=== PATIENT | female | born 1965 | race Caucasian/White ===

== ENCOUNTER 2016-09-03 10:46 | Emergency (ER) | payer MEDICAID, OTHER ==
[~2016-09-03] VITALS: Ht 167.6 cm; Wt 56.2 kg
[2016-09-03 11:08] VITALS: BP 112/79
== END 2016-09-03 11:23 | disposition home or self-care (01) ==
LOC: ER 10:48
DX: J06.9 Acute upper respiratory infection, unspecified (principal); F41.9 Anxiety disorder, unspecified
CPT/HCPCS: A4606; Z7610

== ENCOUNTER 2017-06-30 10:03 | Emergency (ER) | payer BC, MEDICAID ==
[~2017-06-30] VITALS: Ht 167.6 cm; Wt 58.1 kg
--- NOTE | 2017-06-30 10:21 | NUR ---
FEVER/CHILLS X 6 DAYS.STD" I JUST HAD MY FLU SHOT A WEEK PRIOR". INTRMITTENT PRODUCTIVE COUGH, MID UPPER BACK PAIN ,W/DYPSNEA, NAD NOTED, VSS, RESP EVEN AND UNLABORED, WAITING FOR MD BARROW.
--- NOTE | 2017-06-30 10:31 | NUR ---
PT ESCORTED TO ROOM 7. CHNGED INTO GOWN/MONITOR.
--- NOTE | 2017-06-30 10:35 | NUR ---
PATIENT GIVEN MASK
[2017-06-30] MEDS ORDERED: IBUPROFEN 600 MG TABLET PO ONE ×2 (10:50→11:00)
[2017-06-30 11:00] LABS: BASOPHILS # (AUTO) 0.2 /CMM (0.0-0.2); BASOPHILS % (AUTO) 2.8 % (0.0-2.0); EOSINOPHILS % (AUTO) 0.3 % (0.0-6.0); HEMATOCRIT 37 % (33-45); HEMOGLOBIN 12.4 g/dL (11.5-14.8); LYMPHOCYTES # (AUTO) 1.1 /CMM (0.8-4.8); LYMPHOCYTES % (AUTO) 19.9 % (20.0-44.0); MEAN CORPUSCULAR HEMOGLOBIN 29 PG (26.0-33.0); MEAN CORPUSCULAR HGB CONC 33 g/dl (31.0-36.0); MEAN CORPUSCULAR VOLUME 87 fL (82-100); MONOCYTES # (AUTO) 0.6 /CMM (0.1-1.30); MONOCYTES % (AUTO) 10.7 % (2.0-12.0); NEUTROPHILS # (AUTO) 3.5 /CMM (1.8-8.9); NEUTROPHILS % (AUTO) 66.3 % (43.0-81.0); PLATELET COUNT (AUTO) 162 /CMM (150-450); RDW COEFFICIENT OF VARIATION 13.5 (11.5-15.0); RED BLOOD CELL COUNT(AUTO) 4.29 MIL/uL (4.0-5.2); WHITE BLOOD COUNT (AUTO) 5.4 K/uL (4.3-11.0)
[2017-06-30] MEDS ORDERED: IV NS 0.9% 1,000 ML BAG IV ONE (11:00)
--- NOTE | 2017-06-30 11:15 | NUR ---
XRAY AT BS
[2017-06-30 11:38] LABS: CALCIUM, SERUM 7.8 mg/dL (8.5-10.1); CREATININE 0.7 mg/dL (0.6-1.3); POTASSIUM 3.7 mmol/L (3.5-5.1)
--- NOTE | 2017-06-30 11:40 | NUR ---
INFLUENZA TEST SENT TO LAB
[2017-06-30 12:43] VITALS: BP 98/58
--- NOTE | 2017-06-30 12:43 | NUR ---
Patient discharged to home in stable condition. Written and verbal after care instructions given. Patient verbalizes understanding of instruction.IV removed. Catheter intact and site benign. Pressure and 4x4 applied to site. No bleeding noted. Prescription given.
== END 2017-06-30 12:46 | disposition home or self-care (01) ==
LOC: ER 10:05
DX: J18.9 Pneumonia, unspecified organism (principal)
CPT/HCPCS: 36415; 71010; 80048; 83605; 85025; 87804; 96360; 99285; A4606; J7030; 87400; Z7610

== ENCOUNTER 2018-03-17 21:23 | Emergency (ER) | payer BC ==
[~2018-03-17] VITALS: Ht 167.6 cm; Wt 59.0 kg
--- NOTE | 2018-03-17 21:23 | NUR ---
ABD PAIN X 2-3 DAYS, W/ LOWER BACK PAIN. DX WITH UTI X4 DAYS AGO. VSS VÍCTOR CUTE DISTRESS AT THIS TIME. WILL CONTINUE TO MONITOR FOR ANY CHANEGS DURING THE SHIFT.
--- NOTE | 2018-03-17 21:24 | NUR ---
ER AT BEDSIDE
[2018-03-17 22:27] LABS: BASOPHILS % (AUTO) 0.2 % (0.0-2.0); EOSINOPHILS % (AUTO) 0.3 % (0.0-6.0); HEMATOCRIT 39 % (33-45); HEMOGLOBIN 12.7 g/dL (11.5-14.8); LYMPHOCYTES # (AUTO) 1.1 /CMM (0.8-4.8); LYMPHOCYTES % (AUTO) 9.1 % (20.0-44.0); MEAN CORPUSCULAR HEMOGLOBIN 30 PG (26.0-33.0); MEAN CORPUSCULAR HGB CONC 33 g/dl (31.0-36.0); MEAN CORPUSCULAR VOLUME 90 fL (82-100); MONOCYTES # (AUTO) 0.7 /CMM (0.1-1.30); MONOCYTES % (AUTO) 5.8 % (2.0-12.0); NEUTROPHILS # (AUTO) 10.1 /CMM (1.8-8.9); NEUTROPHILS % (AUTO) 84.6 % (43.0-81.0); PLATELET COUNT (AUTO) 201 /CMM (150-450); RDW COEFFICIENT OF VARIATION 13.8 (11.5-15.0); RED BLOOD CELL COUNT(AUTO) 4.27 MIL/uL (4.0-5.2)
[2018-03-17] MEDS ORDERED: ONDANSETRON HCL/PF 4 MG/2 ML VIAL IVP ONE (22:30)
[2018-03-17] MEDS ORDERED: MORPHINE SULFATE INJ 4 MG/ML DISP.SYRIN ONE (22:30)
[2018-03-17] MEDS ORDERED: IV NS 0.9% 1,000 ML BAG IV ONE (22:30)
[2018-03-17] MEDS ORDERED: MORPHINE SULFATE INJ 2 MG/ML DISP.SYRIN IV ONE ×2 (22:30→23:30)
[2018-03-17] MEDS ORDERED: ONDANSETRON HCL/PF 4 MG/2 ML VIAL ONE (22:30)
[2018-03-17 22:31] LABS: APPEARANCE,URINE CLEAR (CLEAR); BILIRUBIN,URINE NEGATIVE (NEGATIVE); BLOOD, URINE 2+ Ery/uL (NEGATIVE); COLOR,URINE OTHER (YELLOW); KETONES,URINE NEGATIVE (NEGATIVE); LEUKOCYTE ESTERASE ,URINE NEGATIVE (NEGATIVE); NITRITE, URINE NEGATIVE (NEGATIVE); PROTEIN,URINE 1+ mg/dl (NEGATIVE); UGLUCOSE NEGATIVE (NEGATIVE); UROBILINOGEN,URINE 0.2 EU/dL (0.2)
[2018-03-17 22:44] LABS: CALCIUM, SERUM 9.1 mg/dL (8.5-10.1); CREATININE 1.4 mg/dL (0.6-1.3); POTASSIUM 3.8 mmol/L (3.5-5.1)
[2018-03-17 22:45] LABS: BACTERIA,URINE Rare /HPF (None Seen); RBC,URINE 21-50 /HPF (0-2); SQUAMOUS EPITHELIAL CELL,UR Few /HPF (None Seen); WBC,URINE 0-2 /HPF (0-3)
[2018-03-17 22:46] LABS: ALBUMIN 4.3 g/dL (3.4-5.0); BILIRUBIN,DIRECT 0.1 mg/dL (0.0-0.2); BILIRUBIN,TOTAL 0.4 mg/dL (0.2-1.0)
--- NOTE | 2018-03-17 23:55 | NUR ---
US TECH AT BEDSIDE
[2018-03-18] MEDS ORDERED: MORPHINE SULFATE INJ 4 MG/ML DISP.SYRIN ONE (00:39)
[2018-03-18] MEDS ORDERED: MORPHINE SULFATE INJ 2 MG/ML DISP.SYRIN ONE (00:39)
--- NOTE | 2018-03-18 01:00 | NUR ---
JORGE SOW AT BEDSIDE EXPLAINING D/C INSTRUCTIONS AND LAB RESULTS.
--- NOTE | 2018-03-18 01:11 | NUR ---
IV D/C'D. PATIENT LEAVING WITH STEADY GAIT AND VSS NAD.
[2018-03-18 01:13] VITALS: BP 115/69
== END 2018-03-18 01:14 | disposition home or self-care (01) ==
LOC: ER 21:25
DX: R10.84 Generalized abdominal pain (principal); R31.29 Other microscopic hematuria; N28.9 Disorder of kidney and ureter, unspecified; Z90.49 Acquired absence of other specified parts of digestive tract; Z98.890 Other specified postprocedural states
CPT/HCPCS: 36415; 76705-TC; 76770-TC; 80048-TC; 80076-TC; 81000-TC; 83690-TC; 85025-TC; 87086-TC; A4606; J2270; J2405; J7030; Z7610